=== PATIENT | female | born 1960 | race Caucasian/White ===

== ENCOUNTER 2017-08-19 11:27 | Emergency (ER) | payer OTHER ==
[2017-08-19 11:41] VITALS: TEMP 98.7; BMI 35.4
--- NOTE | 2017-08-19 11:57 | PDOC ---
History of Present Illness - General Chief Complaint: Injury Stated Complaint: FELL INJURING RIGHT FOOT AND ABRASION LEFT KNEE Time Seen by Provider: 08/19/17 11:48 - History of Present Illness Initial Comments: 08/19/17 11:54 Chief complaint: Ankle injury History of present illness: Patient fell while walking to the train, injured her right foot. Has pain and swelling over the fifth metatarsal base. Ambulating but with a limp due to pain. Review of systems: Patient did not fall. There were no other injuries including injuries to the head neck chest abdomen spine and pelvis or other extremities. Past medical history: Hypothyroidism on Synthroid. Obesity. Social/family history reviewed and noncontributory Physical exam: Alert and oriented obese no acute distress cooperative Afebrile, vital signs normal except for mildly elevated blood pressure 160/100. This may be due to pain Head atraumatic. PERRLA, ENT clear Neck without tenderness or deformity, full range of motion without pain Lungs clear. No chest wall or rib cage tenderness or deformity CV regular without murmur rub or gallop Abdomen benign Neurological intact Extremities: There is no injury to the right foot. There is pain, swelling, and ecchymosis over the base of the fifth metatarsal. There are no distal sensory or motor deficits. There is no deformity of the foot or ankle, and there is no swelling and tenderness of the ankle itself. Impression: Probable fifth metatarsal fracture Plan x-ray and further orthopedic management depending on results. Past History - Past Medical History Allergies/Adverse Reactions: Allergies Allergy/AdvReac Type Severity Reaction Status Date / Time No Known Allergies Allergy Unverified 08/19/17 11:28 Home Medications: Ambulatory Orders Levothyroxine [Synthroid -] 150 mcg PO DAILY 08/19/17 Thyroid Disease: Yes - Suicide/Smoking/Psychosocial Hx Smoking History: Never smoked Information on smoking cessation initiated: No Hx Alcohol Use: No Drug/Substance Use Hx: No Substance Use Type: None *Physical Exam - Vital Signs Last Vital Signs Temp Pulse Resp BP Pulse Ox 98.7 F 78 20 160/100 100 08/19/17 11:28 08/19/17 11:28 08/19/17 11:28 08/19/17 11:28 08/19/17 11:28 ED Treatment Course - RADIOLOGY Radiology Studies Ordered: Category Date Time Status FOOT-RIGHT [RAD] Stat Radiology 08/19/17 11:49 Ordered Medical Decision Making - Medical Decision Making 08/19/17 12:28 X-ray shows an avulsion fracture of the fifth metatarsal. Have contacted [facility] and awaiting response. 08/19/17 12:35 The patient was fitted with a hard shoe. She is ambulating adequately. She elects to go home and schedule an orthopedic appointment at a future time. She is instructed to rest elevate and ice the extremity. Take Motrin or Aleve for pain and swelling. And see engineering specialist for further evaluation and treatment within 5 days. She understands and agrees. *DC/Admit/Observation/Transfer Diagnosis at time of Disposition: Fracture of right foot Qualifiers: Encounter type: initial encounter Fracture type: closed Qualified Code(s): S92.901A - Unspecified fracture of right foot, initial encounter for closed fracture; S92.901A - Unspecified fracture of right foot, initial encounter for closed fracture - Discharge Dispostion Disposition: HOME Condition at time of disposition: Improved Admit: No - Referrals Referrals: Jake Yañez MD [Staff Physician] - 1 week - Patient Instructions Printed Discharge Instructions: DI for Foot Fracture Additional Instructions: Rest, elevate, Advil or Aleve, ice, and see engineering specialist for further evaluation and treatment within 1 week. - Post Discharge Activity Forms/Work/School Notes: Back to Work
[2017-08-19 12:46] VITALS: BP 152/85; PULSE 85
== END 2017-08-19 12:46 | disposition home or self-care (01) ==
LOC: FER 11:27
DX: S92.901A Unspecified fracture of right foot, initial encounter for closed fracture (principal); E03.9 Hypothyroidism, unspecified; E66.9 Obesity, unspecified; Z68.35 Body mass index [BMI] 35.0-35.9, adult
CPT/HCPCS: 73630-TC-RT; 99282-25